=== PATIENT | female | born 2005 | race African-American/Black ===

== ENCOUNTER 2023-02-12 14:15 | Outpatient (CLI) | payer OTHER, SELFPAY ==
[2023-02-12 15:37] LABS: SARS-CoV-2 RNA PCR Negative (Negative)
== END 2023-02-12 14:16 | disposition home or self-care (01) ==
PROVIDERS: PCP Family Medicine; Visit Provider Family Medicine
DX: Z20.822 Contact with and (suspected) exposure to COVID-19 (principal)
CPT/HCPCS: 87635

== ENCOUNTER 2023-05-21 15:49 | Emergency (ER) | payer OTHER, SELFPAY ==
--- NOTE | 2023-05-21 16:38 | ED.URI ---
HPI - URI/Sore Throat General Chief Complaint: Upper Respiratory Infection Stated Complaint: covid exposure Time Seen by Provider: 05/21/23 16:38 Source: patient Mode of arrival: ambulatory Limitations: no limitations History of Present Illness HPI Narrative: 17-year-old female here for COVID testing. Had exposure from her father. Patient has no symptoms. All systems reviewed and negative except as noted above. Related Data Allergies Allergy/AdvReac Type Severity Reaction Status Date / Time No Known Allergies Allergy Verified 05/21/23 16:52 Review of Systems Review of Systems: CONSTITUTIONAL: Denies fever, chills, or sweats. EYES: Denies visual changes, redness, or discharge. ENT: Denies rhinorrhea, congestion, sore throat, or otalgia. CARDIOVASCULAR: Denies chest pain, palpitations, or edema. RESPIRATORY: Denies cough or dyspnea. GASTROINTESTINAL: Denies abdominal pain, nausea, vomiting, or diarrhea. GENITOURINARY: Denies dysuria or hematuria. SKIN: Denies rash or itching. MUSCULOSKELETAL: Denies back pain, joint pain, or myalgia. NEUROLOGIC: Denies headache, numbness, or weakness. PSYCHIATRIC: Denies anxiety or depression. All other systems reviewed are negative, except as documented in HPI. [facility] Past Medical History Medical History (Updated 05/21/23 @ 17:27 by Casandra Sahu NP) ADHD Surgical History Surgical History (Updated 03/22/23 @ 13:50 by Carleen Barlow PA-C) H/O foot surgery (~2021) Hx of tonsillectomy (~2009) Family History Family History (Updated 03/22/23 @ 13:39 by Therese Jacome MA) Father Asthma Heart disease Cerebrovascular accident Mother Asthma Diabetes mellitus Depression Sibling Asthma Grandparent Asthma Cancer of unknown origin Alcoholism Social History Social History (Updated 03/22/23 @ 13:51 by Carleen Barlow PA-C) Social History: She is living at home with parents, and 3 siblings. 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 Smoking status: Never smoker Alcohol intake: never Substance use: never Comments At time of signature, agree with nursing past medical, surgical, social and family history. There is no relevant family history pertinent to the presenting complaint. Exam Narrative: GENERAL: This is a well-nourished, well-developed patient, in no apparent distress. HEAD: normocephalic, atraumatic. EYES: PERRL. Sclera clear/white. Vision is grossly intact. EARS: External ears normal NOSE: External nose normal NECK: Neck supple, non-tender without lymphadenopathy, masses or thyromegaly. CARDIOVASCULAR: Regular rate and rhythm without murmurs, gallops, or rubs. RESPIRATORY: Clear to auscultation. Breath sounds equal bilaterally. No wheezes, rales, or rhonchi. SKIN: warm, Dry, intact with no suspicious lesions or rash, good texture and turgor. NEURO: awake, alert, and oriented to person, place and time. There were no obvious focal neurologic abnormalities. EXTREMITIES: No joint tenderness, effusion, or edema noted. Course Course Level of Care: Express Care Visit Vital Signs Vital signs: Vital Signs Temperature 36.3 C L 05/21/23 16:45 Pulse Rate 97 05/21/23 16:45 Respiratory Rate 18 05/21/23 16:45 Blood Pressure 126/84 05/21/23 16:45 Pulse Oximetry 98 05/21/23 16:45 Oxygen Delivery Room Air 05/21/23 16:45 Temperature 36.3 C L 05/21/23 16:45 Pulse Rate 97 05/21/23 16:45 Respiratory Rate 18 05/21/23 16:45 Blood Pressure 126/84 05/21/23 16:45 Pulse Oximetry 98 05/21/23 16:45 Oxygen Delivery Room Air 05/21/23 16:45 Reviewed MDM - URI/Sore Throat MDM Narrative Medical decision making narrative: Patient is aware of diagnosis, understands and agrees to treatment plan. Anticipatory guidance given. Patient agrees to follow-up as directed and is aware of reasons to seek care at the emergency department. Portions of this record may have been created with voice recognition
[2023-05-21 16:45] VITALS: BP 126/84; PULSE 97; RESP 18; TEMP 36.3; O2SAT 98
== END 2023-05-21 17:35 | disposition home or self-care (01) ==
PROVIDERS: Emergency Provider Nurse Practitioner Family; PCP Physician Assistant
DX: Z20.822 Contact with and (suspected) exposure to COVID-19 (principal); F90.9 Attention-deficit hyperactivity disorder, unspecified type
CPT/HCPCS: 87426; 99213; C9803; G0463

== ENCOUNTER 2024-02-01 08:20 | Emergency (ER) | payer SELFPAY ==
[2024-02-01 08:49] VITALS: BP 116/64; PULSE 98; RESP 20; TEMP 36.7; O2SAT 99
--- NOTE | 2024-02-01 09:02 | ED.URI ---
HPI - URI/Sore Throat General Chief Complaint: Upper Respiratory Infection Stated Complaint: covid symptoms and strep Time Seen by Provider: 02/01/24 09:03 Source: patient, RN notes reviewed and old records reviewed Mode of arrival: ambulatory Limitations: no limitations History of Present Illness HPI Narrative: 18-year-old female presents to the [facility] with complaints of sore throat, runny nose and a cough that started 2 days ago. Had taken a dose of cough and cold medicine that did not help much. Denies any other symptoms. Denies fevers, chest pain, abdominal pain, nausea, vomiting Onset (ago): day(s) (2) Treatments prior to arrival: cold medicine Related Data Allergies Allergy/AdvReac Type Severity Reaction Status Date / Time No Known Allergies Allergy Verified 02/01/24 08:43 Review of Systems Review of Systems: All systems reviewed & are unremarkable except as noted in HPI and below Constitutional: Constitutional: Reports no additional constitutional complaints Eyes: Eyes: Reports no additional eye complaints ENT: Reports as per HPI, Reports nasal congestion, Reports nasal discharge and Reports sore throat Cardiovascular: Cardiovascular: Reports no additional cardiovascular complaints, Denies chest pain and Denies dyspnea Respiratory: Respiratory: Reports as per HPI, Denies chest congestion, Reports cough and Denies dyspnea Gastrointestinal: Gastrointestinal: Reports no additional gastrointestinal complaints, Denies abdominal pain, Denies nausea and Denies vomiting Musculoskeletal: Musculoskeletal: Reports no additional musculoskeletal complaints Integumentary/Breasts: Skin/Breast: Reports system reviewed and no additional complaints, except as docu Neurologic: Reports system reviewed and no additional complaints, except as documented Psychiatric: Psychiatric: Reports no additional psychiatric complaints Allergic/Immunologic: Allergic/Immunologic: Reports no additional allergic/immunologic complaints [facility] Past Medical History Medical History ADHD Surgical History Surgical History H/O foot surgery (~2021) Hx of tonsillectomy (~2009) Family History Family History Father Asthma Heart disease Cerebrovascular accident Mother Asthma Diabetes mellitus Depression Sibling Asthma Grandparent Asthma Cancer of unknown origin Alcoholism Social History Social History (Reviewed 02/01/24 @ 09:09 by DIA Wilkinson Social History: She is living at home with parents, and 3 siblings. 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 Smoking status: Never smoker Alcohol intake: never Substance use: never Comments At the time of my signature, I reviewed and agree with the nursing past medical, surgical, social, and family history. There is no relevant family history pertinent to the patient complaint. Exam Const: General: cooperative, healthy appearing, comfortable, no acute distress, well developed, alert and well nourished Nutritional Appearance: well nourished and obese morbidly obese Orientation/consciousness: patient oriented x3 Limitations: no limitations HENMT: Head: normal to inspection Ears: hearing grossly normal bilaterally and external ears normal Face/Nose/Sinus: Normal external nose present, Normal nares present, Normal nasal mucous membranes and turbinates present, normal facial exam and face symmetric Face and sinus: normal facial exam and face symmetric Mouth: Yes Normal oral and palatal mucosa present, Yes lip normal and Yes tongue normal Throat: uvula midline, postnasal drainage, tonsils absent and no uvular edema Eyes: General: appearance normal, both eyes and all related structures Alignment and Position: alignment normal Periorbital: periorbital findings normal Pupils: Equal, round and reactive pupils present E
[2024-02-01 09:23] LABS: EDINFLUASCREEN Negative; EDINFLUBSCREEN Negative; EDSTREPNEGPOS1 Negative
== END 2024-02-01 09:16 | disposition home or self-care (01) ==
PROVIDERS: Emergency Provider Nurse Practitioner; PCP Family Medicine
DX: J06.9 Acute upper respiratory infection, unspecified (principal); R09.82 Postnasal drip; Z20.822 Contact with and (suspected) exposure to COVID-19
CPT/HCPCS: 87081; 87426; 87804; 87880; 99213; G0463

== ENCOUNTER 2024-05-08 10:49 | Emergency (ER) | payer OTHER, SELFPAY ==
--- NOTE | 2024-05-08 11:11 | ED.URI ---
HPI - URI/Sore Throat General Chief Complaint: Upper Respiratory Infection Stated Complaint: sob and cold symptoms Time Seen by Provider: 05/08/24 11:10 Source: patient Mode of arrival: ambulatory Limitations: no limitations History of Present Illness HPI Narrative: Patient is a 18-year-old female who presents with shortness of breath on exertion and cough since yesterday. Patient has been taking Zyrtec. Denies personal asthma history but has family history of asthma. Denies any fever, chills, nausea, vomiting, diarrhea, sore throat. Related Data Allergies Allergy/AdvReac Type Severity Reaction Status Date / Time No Known Allergies Allergy Verified 05/08/24 11:48 Review of Systems Review of Systems: All systems reviewed & are unremarkable except as noted in HPI and below Constitutional: Constitutional: Denies body ache(s), Denies chills, Denies fatigue, Denies fever(s), Denies headache(s), Denies malaise and Denies weakness Eyes: Eyes: Denies blurry vision, Denies itchy eyes and Denies loss of vision ENT: Denies otalgia, Denies headache(s), Reports nasal congestion, Denies sinus pain and Denies sore throat Cardiovascular: Cardiovascular: Denies chest pain, Denies irregular heart rhythm and Denies dyspnea Respiratory: Respiratory: Reports cough, Denies dyspnea and Reports dyspnea on exertion Gastrointestinal: Gastrointestinal: Denies abdominal pain, Denies diarrhea, Denies nausea and Denies vomiting Musculoskeletal: Musculoskeletal: Denies back pain, Denies myalgias and Denies arthralgias Integumentary/Breasts: Skin/Breast: Denies pruritus and Denies rash Neurologic: Denies headache(s), Denies loss of vision and Denies weakness Psychiatric: Psychiatric: Reports no additional psychiatric complaints Endocrine: Endocrine: Denies fatigue Allergic/Immunologic: Allergic/Immunologic: Denies itchy eyes PMFSH Past Medical History Medical History ADHD Surgical History Surgical History H/O foot surgery (~2021) Hx of tonsillectomy (~2009) Family History Family History Father Asthma Heart disease Cerebrovascular accident Mother Asthma Diabetes mellitus Depression Sibling Asthma Grandparent Asthma Cancer of unknown origin Alcoholism Social History Social History Social History: She is living at home with parents, and 3 siblings. 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 Smoking status: Never smoker Alcohol intake: never Substance use: never Comments At time of signature, agree with nursing past medical, surgical, social and family history. There is no relevant family history pertinent to the presenting complaint. Exam Const: General: cooperative, healthy appearing, comfortable, no acute distress and well nourished Nutritional Appearance: well nourished Orientation/consciousness: patient oriented x3 Limitations: no limitations HENMT: Head: normal to inspection, normocephalic and atraumatic Ears: hearing grossly normal bilaterally, external ears normal, TM's normal bilaterally, EAC's normal and no periauricular adenopathy Face/Nose/Sinus: Normal external nose present, Abnormal mucous membranes and turbinates present erythematous bilateral and diffuse, normal facial exam, sinuses nontender and face symmetric Face and sinus: normal facial exam, sinuses nontender and face symmetric Mouth: Yes Normal oral and palatal mucosa present, Yes lip normal, Yes tongue normal, Yes Normal salivary glands and ducts present, Yes oropharynx normal and Yes moist mucous membranes Teeth and gingiva: dentition normal Throat: posterior oropharynx normal, tonsils normal and uvula midline Eyes: General: appearance normal, both eyes and all related structures Alignment and Position: alignment normal and position normal Periorbital: periorbital findings normal Eyelids: eyelids normal Pupils: Equal, round and reactive pupils present Neck: Neck: normal visual inspection, full ROM, no lymphadenopathy and supple Chest: Chest palpation & inspection: normal inspection of the chest and normal palpation of entire chest wall Resp: Effort & Inspection: normal respiratory effort and able to speak in complete sentences Auscultation: no crackles, no rales, no rhonchi and wheezes expiratory wheezes and throughout Cardio: Rate: regular rate Rhythm: regular rhythm Heart sounds: S1 normal heart sound present and S2 normal heart sound present GI: Inspection: normal to inspection Skin: General skin exam: normal color and no rashes or lesions noted Neuro: General: patient oriented x3 and moves all extremities Cranial nerves: Yes Equal, round and reactive pupils present Speech: normal speech Gait exam (Neuro): Normal gait present Extrem: General: normal to inspection, full ROM and no edema Psych: Appearance: grossly normal and well kempt Mental Status: mental status grossly normal Speech and movement: Normal speech and movement present Affect: normal affect Attitude: cooperative Thought process: Normal thought process present Course Course Emergency Course: Patient is aware of diagnosis, understands and agrees to treatment plan. Anticipatory guidance given. Patient agrees to follow-up as directed and is aware of reasons to seek care at the emergency department. Portions of this record may have been created with voice recognition software Level of Care: Express Care Visit Vital Signs Vital signs: Vital Signs Temperature 37.2 C 05/08/24 11:27 Pulse Rate 113 H 05/08/24 11:27 Respiratory Rate 18 05/08/24 11:27 Blood Pressure 122/71 05/08/24 11:27 Pulse Oximetry 97 05/08/24 11:27 Oxygen Delivery Room Air 05/08/24 11:27 Temperature 37.2 C 05/08/24 11:27 Pulse Rate 113 H 05/08/24 11:27 Respiratory Rate 18 05/08/24 11:27 Blood Pressure 122/71 05/08/24 11:27 Pulse Oximetry 97 05/08/24 11:27 Oxygen Delivery Room Air 05/08/24 11:27 Reviewed MDM - URI/Sore Throat MDM Narrative Medical decision making narrative: Discharge instructions reviewed with patient, as well as provided in writing per nursing staff. The instructions also include specific and strict return/GO TO THE ER as well as f/u information. All questions have been answered, and the patient deny any further questions with discharge and discharge plan. Differential diagnosis considered: Sharp virus, strep pharyngitis, allergic rhinitis, upper respiratory tract infection, sinusitis, rhinosinusitis, nasopharyngitis. viral pharyngitis, otitis media, otitis externa, otitis effusion, foreign body, cerumen impaction, viral syndrome, and influenza.? Exam findings show no acute concerns or changes; patient is non-toxic appearing and is in no distress.? Patient is appropriate for outpatient treatment and follow-up.? Medical Records Attestation: I reviewed the patient's medical records. Lab Data Attestation: I reviewed the patient's lab results. Labs: Lab Results 05/08/24 Range/Units 12:20 POC Influenza A Ag Negative (Negative) POC Influenza B Ag Negative (Negative) POC SARS CoV-2 Ag Negative (Negative) Discharge Plan Discharge Clinical Impression: Upper respiratory infection Qualifiers: URI type: unspecified viral URI Qualified Code(s): J06.9 - Acute upper respiratory infection, unspecified Patient Disposition: Home, Self-Care Condition: Stable Instructions: Upper Respiratory Infection (ED) Additional Instructions: Use inhaler as needed. Use Tessalon Perles for cough. Your Covid and flu are both negative Your symptoms are likely due to a viral illness, which is not treated with antibiotics. Viral symptoms can be present for up to a few weeks. -Alternate Tylenol and Motrin per package directions for fever or pain. -Antihistamine medication such as Benadryl/Zyrtec at night and Claritin/Sadaf during the day can help improve symptoms. -Use Flonase twice a day for 5 days then daily to help reduce the inflammation and dry up your sinuses. -You can also use Sudafed behind the pharmacy counter(12 or 24 hour). Be sure to drink plenty of water with these medications at least 8 ounces with every dose and it is important to drink 8 to 10 glasses of water per day. Water is a natural decongestant -Eat and drink things that are easy to swallow, like tea or soup, or popsicles. -Oral rinses such as: Salt water gargles and/or may use topical anesthetic (eg. Chloraseptic spray) or lozenges to relieve dryness or throat pain). -Frequent hand washing or hand network management specialist is one of the best ways to prevent spread of infection. -Using a vaporizer or humidifier at night will also help thin secretions and help with coughing up phlegm. -Follow up with primary care provider in 3-5 days if condition is not improving - For new or worsening symptoms go directly to the nearest ER Prescriptions: New cetirizine 10 mg tablet 10 mg PO DAILY Qty: 30 0RF benzonatate 100 mg capsule 100 mg PO BID PRN (Reason: cough) Qty: 14 0RF albuterol sulfate 90 mcg/actuation HFA aerosol inhaler 2 puff inhalation QID PRN (Reason: shortness of breath or wheezing) Qty: 6.7 0RF fluticasone propionate [Flonase Allergy Relief] 50 mcg/actuation spray,suspension 1 spray intranasal DAILY Qty: 16 0RF Rx Instructions: administer into each nostril (DME) Aerochamber MV Spacer See Rx Instructions .Route Qty: 1 0RF Rx Instructions: As directed No Action dextroamphetamine-amphetamine [Adderall XR] 25 mg capsule,extended release 24hr 25 mg PO QAM Qty: 30 0RF Follow-up/Referrals: Cathy Moser MD [Primary Care Provider] - Stand Alone Forms: Work/School Release IP Time of Disposition: 12:15
[2024-05-08 11:27] VITALS: BP 122/71; PULSE 113; RESP 18; TEMP 37.2; O2SAT 97
[2024-05-08 17:03] LABS: EDCOVIDSCREEN Negative (Negative); EDINFLUASCREEN Negative (Negative); EDINFLUBSCREEN Negative (Negative)
== END 2024-05-08 12:22 | disposition home or self-care (01) ==
PROVIDERS: Emergency Provider Nurse Practitioner Family; PCP Family Medicine
DX: J06.9 Acute upper respiratory infection, unspecified (principal); Z20.822 Contact with and (suspected) exposure to COVID-19; F90.9 Attention-deficit hyperactivity disorder, unspecified type
CPT/HCPCS: 87426; 87804; 99213; G0463

== ENCOUNTER 2024-05-26 09:50 | Emergency (ER) | payer OTHER, SELFPAY ==
[2024-05-26 10:15] VITALS: BP 112/88; PULSE 119; RESP 20; TEMP 36.9; O2SAT 98
--- NOTE | 2024-05-26 10:57 | ED.URI ---
HPI - URI/Sore Throat General Chief Complaint: Upper Respiratory Infection Stated Complaint: sore throat Time Seen by Provider: 05/26/24 11:15 Source: patient, RN notes reviewed and old records reviewed Mode of arrival: ambulatory Limitations: no limitations History of Present Illness HPI Narrative: patient presents with less than 24 hours of fever, cough, runny nose, sore throat. She reports that she has been taking Tylenol for her symptoms. She states this is not very hopeful. She is able to swallow, but states this hurts more. She denies any shortness of breath. She is in no distress. She voices no other concerns or complaints at this Related Data Allergies Allergy/AdvReac Type Severity Reaction Status Date / Time No Known Allergies Allergy Verified 05/26/24 10:31 Review of Systems Review of Systems: All systems reviewed & are unremarkable except as noted in HPI and below Constitutional: Constitutional: Reports as per HPI, Reports no additional constitutional complaints, Reports fever(s), Reports headache(s) and Reports lethargy ENT: Reports system reviewed and no additional complaints, except as documented, Reports nasal congestion, Reports nasal discharge and Reports sore throat Cardiovascular: Cardiovascular: Reports no additional cardiovascular complaints Respiratory: Respiratory: Reports no additional respiratory complaints and Reports cough Gastrointestinal: Gastrointestinal: Reports no additional gastrointestinal complaints PMFSH Past Medical History Medical History ADHD Surgical History Surgical History Hx of tonsillectomy (~2009) H/O foot surgery (~2021) Family History Family History Father Asthma Heart disease Cerebrovascular accident Mother Asthma Diabetes mellitus Depression Sibling Asthma Grandparent Asthma Cancer of unknown origin Alcoholism Social History Social History Social History: She is living at home with parents, and 3 siblings. 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 Smoking status: Never smoker Alcohol intake: never Substance use: never Comments At the time of my signature, I reviewed and agree with the nursing past medical, surgical, social, and family history. There is no relevant family history pertinent to the patient complaint. Exam Const: General: cooperative, no acute distress, alert and awake Orientation/consciousness: oriented to person, oriented to place and oriented to time HENMT: Head: normal to inspection Ears: TM's normal bilaterally Mouth: Yes moist mucous membranes Throat: posterior oropharynx abnormal erythema and postnasal drainage Resp: Effort & Inspection: normal respiratory effort and able to speak in complete sentences Auscultation: clear to auscultation bilaterally, no crackles, no rales, no rhonchi and no wheezes Cardio: Palpation: normal PMI Rate: regular rate Rhythm: regular rhythm Heart sounds: S1 normal heart sound present and S2 normal heart sound present Neuro: General: oriented to person, oriented to place and oriented to time Cranial nerves: Yes CN's II-XII intact bilaterally Psych: Appearance: grossly normal Thought process: Normal thought process present Insight: Good insight present (Psych) Judgement: Good judgement present (Psych) Course Course Level of Care: Express Care Visit Vital Signs Vital signs: Vital Signs Temperature 98.4 F 05/26/24 10:15 Pulse Rate 119 H 05/26/24 10:15 Respiratory Rate 20 05/26/24 10:15 Blood Pressure 112/88 05/26/24 10:15 Pulse Oximetry 98 05/26/24 10:15 Temperature 98.4 F 05/26/24 10:15 Pulse Rate 119 H 05/26/24 10:15 Respiratory Rate 20 05/26/24 10:15 Blood Pressure 112/88 05/26/24 10:15 Pulse Oximetry 98 05/26/24 10:15 Reviewed MDM - URI/Sore Throat MDM Narrative Medical decision making narrative: negative flu, negative COVID, negative strep. Culture pending. Symptomatic treatment discussed with patient. Symptoms likely viral in origin. Patient nontoxic appearing, stable for discharge home. Discharge instructions reviewed with patient, as well as provided in writing per nursing staff. The instructions also include specific and strict return/GO TO THE ER as well as f/u information. All questions have been answered, and the patient deny any further questions with discharge and discharge plan. Some parts of this dictation were generated by voice recognition software and may contain typographical and/or grammatical inaccuracies. Differential Diagnosis Differential diagnosis: Likely upper respiratory infection, otitis media, sinusitis, viral infection, bronchitis and pharyngitis Medical Records Attestation: I reviewed the patient's medical records. Lab Data Attestation: I reviewed the patient's lab results. Discharge Plan Discharge Clinical Impression: Viral infection Patient Disposition: Home, Self-Care Condition: Stable Instructions: Antibiotic Form, Cold Symptoms (ED) Additional Instructions: Take [id number] medications to treat her symptoms. Follow package instructions. Follow with primary care provider. Emergency department for new or worse symptoms Patient Language: Greenlandic Prescriptions: No Action cetirizine 10 mg tablet 10 mg PO DAILY Qty: 30 0RF (DME) Aerochamber MV Spacer See Rx Instructions .Route Qty: 1 0RF Rx Instructions: As directed dextroamphetamine-amphetamine [Adderall XR] 25 mg capsule,extended release 24hr 25 mg PO QAM Qty: 30 0RF Follow-up/Referrals: Cathy Moser MD [Primary Care Provider] - 2 Weeks Time of Disposition: 11:23
[2024-05-26 11:12] LABS: EDINFLUASCREEN Negative (Negative); EDINFLUBSCREEN Negative (Negative); EDSTREPNEGPOS1 Negative (Negative)
[2024-05-26 11:12] LABS: EDCOVIDSCREEN Negative (Negative)
== END 2024-05-26 11:28 | disposition home or self-care (01) ==
PROVIDERS: Emergency Provider Nurse Practitioner Family; PCP Family Medicine
DX: B34.9 Viral infection, unspecified (principal); Z20.822 Contact with and (suspected) exposure to COVID-19
CPT/HCPCS: 87081; 87426; 87804; 87880; 99213; G0463

== ENCOUNTER 2024-07-17 11:54 | Emergency (ER) | payer OTHER, SELFPAY ==
[2024-07-17 12:14] VITALS: BP 100/77; PULSE 98; RESP 18; TEMP 36.9; O2SAT 100
--- OUTSIDE RECORDS SUMMARY | 2024-07-17 12:26 | XMS_ITS | Continuity of Care Document ---
Author Organization [facility], TD Address [address] [place] [phone] Phone Care Team Providers Care Wireless Engineer Name Role Phone Obholden OD, Lyubov Unavailable Unavailabl e Allergies, Adverse Reactions, Alerts Substance Reaction Status Criticality No Known Allergies Active No Inform ation Procedures Procedure Date REFRACTION EYE EXAM, NEW PATIENT Advance Directives Directive Yes / No Effective Date File Name No Information Encounters Encounter Description Practice Location Reason(s) For Visit Diagnoses Date Provider Providers Copied on Encounter [facility], [facility], [address] [place] [address], [id number], [place] tel:[phone] [facility] blurry DVA OU sc (chief complaint) Hypermetrop ia, bilateral Patricia Mcarthur. [address], [place], [place], [id number], [place]. tel:[phone] Referring Provider: Lyubov Solorzano, [address], [place], [address]. tel:[phone] Family History Family Member Type Diagnosis Age At Onset No Information Payers Payer name Insurance type Covered green party ID Authoriza tigolden(s) [employer] CI 000 Social History Type Description Quantity Date Captured Comments Alcohol Use Details Unknown Caffeine Use Details Unknown Tobacco Use Status Current non-smoker Smoking Status Never smoker Non-Smoking Tobacco Use Details : No Details Available : No Details Available Sex Female Chief Complaint And Reason For Visit From encounter dated 04/24/2022 13:00'. blurry DVA OU sc (chief complaint). Description: The 16 year 5 month old patient presents for evaluation of blurry DVA OU sc. PT reports NVA OU sc is good. It started a little while ago. PT denies pain or discomfort and use of eye meds or AT OU. Reason For Referral Reason For Referral No Information History Of Present Illness Encounter Date Complaint History Of Prese nt Illness blurry DVA OU sc The 16 year 5 m onth old patient presents for evaluation of blurry DVA OU sc. PT reports NVA OU sc is good. It started a little while ago. PT denies pain or discomfort and use of eye meds or AT OU. Functional Status Date Functional Assessmen t No Information Instructions Date Instruction Additional Infor devon Impression/Plan Assessments Type Assessment Date assessment Hypermetropia, bilateral 2021 Patient Care Teams Name Effective Dates (start - stop) Status Members No Information
--- OUTSIDE RECORDS SUMMARY | 2024-07-17 12:26 | XMS_ITS | Clinical Summary ---
Author Organization [facility] Address [address] [place] [address] Care Team Providers Care Desktop Operator Name Role Phone No, Physician Primary Care Provider [phone] Allergies No known active allergies Medications albuterol HFA (PROVENTIL HFA,VENTOLIN HFA,PROAIR HFA) 90 mcg/actuation inhaler Inhale 2 puffs every 4 (four) hours as needed for wheezing or shortness of breath 1 each 4 02/08/20 25 Active Additional Information Patient not taking.Reported on 06/04/2024 benzonatate (TESSALON) 100 mg capsuleIndicati ons:Cough Take 1 capsule (100 mg total) by mouth every 8 (eight) hours 21 capsule 4 Active Additional Information Patient not taking.Reported on 06/04/2024 albuterol 5 mg/mL nebulizer solution Take 0.5 mL (2.5 mg total) by nebulization every 6 (six) hours as needed for wheezing 20 mL 4 06/04/20 25 Active albuterol HFA (PROVENTIL HFA,VENTOLIN HFA,PROAIR HFA) 90 mcg/actuation inhaler Inhale 2 puffs every 4 (four) hours as needed for wheezing 1 each 4 06/04/20 25 Active guaiFENesin-dex tromethorphan ER (MUCINEX DM) 600-30 mg tablet extended release 12 hr Take 1 tablet by mouth every 12 (twelve) hours as needed (Take 1 every 12 hours as needed for congestion/cough ) 28 tablet 4 Active Active Problems No known active problems Encounters Date Type Department Care Team Description 06/04/2024 6:27 PM SENIOR NET PROGRAMMER - 06/04/2024 11:59 PM SENIOR NET PROGRAMMER Hospital Encounter [address] [address] Shortness of breath Discharge Disposition: Discharge to home or self care 06/04/2024 1:55 PM SENIOR NET PROGRAMMER - 06/04/2024 4:47 PM SENIOR NET PROGRAMMER Emergency [facility] Emergency Department [address] [place] [address] Shortness of breath (Primary Dx) Discharge Disposition: Discharge to home or self care 06/04/2024 12:00 PM SENIOR NET PROGRAMMER Office Visit [facility] at [address] [address] Blank Khalil PA Shortness of breath (Primary Dx); Lower respiratory infection from Last 3 Months Social History Tobacco Use Types Packs/Day Years Used Date Smoking Tobacco: Never Smokeless Tobacco: Never Tobacco Cessation:Counseling Given: Not Answered Alcohol Use Standard Drinks/Week Comments Never 0 (1 standard drink = 0.6 oz pur e alcohol) Personal Safety Answer Date Recorded Have you ever been in or are you currently in a harmful physical or emotional relationship or is someone making you feel afraid or unsafe? Denies 06/04/2024 Comments No Sex and Gender Information Value Date Recorded Sex Assigned at Not on file Legal Sex Female 1:12 AM SENIOR NET PROGRAMMER Gender Identity Not on file Sexual Orientation Not on file Obstetrics History Last Filed Vital Signs Vital Sign Reading Time Taken Comments Blood Pressure 153/92 06/04/2024 12:46 PM SENIOR NET PROGRAMMER Pulse 102 06/04/2024 2:15 PM SENIOR NET PROGRAMMER Temperature 36.6 C (97.9 F) 06/04/2024 12:46 PM SENIOR NET PROGRAMMER Respiratory Rate 20 06/04/2024 12:4 6 PM SENIOR NET PROGRAMMER Oxygen Saturation 97% 06/04/2024 2:15 PM SENIOR NET PROGRAMMER Inhaled Oxygen Concentration - - Weight 147.4 kg (324 lb 15.3 oz) 2023 12:46 PM SENIOR NET PROGRAMMER Height 157.5 cm (5' 2 ) 06/04/2024 12:4 6 PM SENIOR NET PROGRAMMER Body Mass Index 59.44 06/04/2024 12:46 PM SENIOR NET PROGRAMMER Plan of Treatment Health Maintenance Due Date Last Done Comments Depression Screening 2003 Hepatitis C Screening 2003 Varicella Vaccines (1 of 2 - 13+ 2-dose series) 11/05/2016 Regular Well Visit/Exam 18-64 11/05/2021 Meningococcal B Vaccine (2 o f 2 - Risk Bexsero 2-dose series) 02/06/2022 01/09/2022 Influenza Vaccine (#1) 2024 06/08/2013, 2011 DTaP/Tdap/Td Vaccine (7 - Td or Tdap) 01/16/2025 01/16/2015, 06/15/2008, 03/09/2005, Additional history exists Pneumococcal vaccine <65 Completed 005, 05/26/2004, 03/11/2004, Additional history exists HPV Vaccines Completed 05/21/2017, 01/16/2015 Meningococcal Vaccine Completed 01/09/2022, 015 Procedures Procedure Name Priority Date/Time Associated Diagnosis Comments EGFR STAT 06/04/2024 3:00 PM SENIOR NET PROGRAMMER DIFFERENTIAL AUTO STAT 06/04/2024 3:0 0 PM SENIOR NET PROGRAMMER CBC WITH AUTO DIFFERENTIAL STAT 06/04/2024 3:00 PM SENIOR NET PROGRAMMER COMPREHENSIVE METABOLIC PANEL STAT 06/04/2024 3:00 PM SENIOR NET PROGRAMMER XR CHEST PA LATERAL 2 VIEWS ED 06/04/2024 1:07 PM SENIOR NET PROGRAMMER POCT RAPID STREP Routine 06/04/2024 11:3 8 AM SENIOR NET PROGRAMMER Shortness of breath POC INFLUENZA A/B, COVID-19 ANTIGEN Routine 06/04/2024 11:36 AM SENIOR NET PROGRAMMER Shortness of breath THROAT CULTURE Routine 06/04/2024 8:00 AM SENIOR NET PROGRAMMER Shortness of breath from Last 3 Months Results * eGFR (06/04/2024 3:00 PM SENIOR NET PROGRAMMER) eGFR >90 >=60 mL/min/1. 73 m2 Comment: Interpretive Data Reference Interval Normal >/= 90 mL/min/1.73m2 Mildly decreased* 60 - 89 mL/min/1.73m2 Mildly to moderately decreased 45 - 59 mL/min/1.73m2 Moderately to severely decreased 30 - 44 mL/min/1.73m2 Severely decreased 15 - 29 mL/min/1.73m2 Kidney Failure < 15 mL/min/1.73m2 *Relative to young adult level Estimated glomerular filtration rate is determined by the 2020 CKD-EPI equation recommended by the National Kidney Foundation (A Unifying Approach to GFR Estimation: Recommendations of the NKF-ASK Task Force on Reassessing the Inclusion of Race in Diagnosing Kidney Disease, JASN 2020). The CKD-EPI equation should not be used for patients with unstable renal function and has not been validated in children and those over 70. Current interpretive data was last reviewed 2021. Testing performed by: [address] [address] Blood 06/04/2024 3:00 PM SENIOR NET PROGRAMMER 06/04/2024 3:05 PM SENIOR NET PROGRAMMER us Heydi HURTADO LAB BLOOD ORDERABL ES Final Result RITU [address] [facility] [place] [address] * Differential, auto (06/04/2024 3:00 PM SENIOR NET PROGRAMMER) Neutrophil abs 5.9 1.5 - 6.5 K/cumm Comment:Testing performed by : [address] [address] Imm gran abs 0.0 0.0 - 0.1 K/cumm RITU Comment:Testing performed by : [address] [address] Lymphocyte abs 2.3 0.8 - 3.3 K/cumm RITU Comment:Testing performed by : [address] [address] Monocyte abs 0.4 0.2 - 0.8 K/cumm RITU Comment:Testing performed by : [address] [address] Eosinophil abs 0.3 0.0 - 0.5 K/cumm RITU Comment:Testing performed by : [address] [address] Basophil abs 0.0 0.0 - 0.1 K/cumm RITU Comment:Testing performed by : [address] [address] Neutrophil pct 66.0 % [facility] [place] Comment: Interpretive Data Percent cell count reference ranges are not reported, since discordance with absolute values may lead to misinterpretation of CBC data. Current Interpretive Data was last revised on 2017. Testing performed by: [address] [address] Imm gran pct 0.3 % [facility] Comment: Interpretive Data Percent cell count reference ranges are not reported, since discordance with absolute values may lead to misinterpretation of CBC data. Current Interpretive Data was last revised on 2017. Testing performed by: [address] [address] Lymphocyte pct 26.1 % [facility] Comment: Interpretive Data Percent cell count reference ranges are not reported, since discordance with absolute values may lead to misinterpretation of CBC data. Current Interpretive Data was last revised on 2017. Testing performed by: [address] [address] Monocyte pct 4.4 % [facility] Comment: Interpretive Data Percent cell count reference ranges are not reported, since discordance with absolute values may lead to misinterpretation of CBC data. Current Interpretive Data was last revised on 2017. Testing performed by: [address] [address] Eosinophil pct 2.9 % [facility] Comment: Interpretive Data Percent cell count reference ranges are not reported, since discordance with absolute values may lead to misinterpretation of CBC data. Current Interpretive Data was last revised on 2017. Testing performed by: [address] [address] Basophil pct 0.3 % [facility] [place] Comment: Interpretive Data Percent cell count reference ranges are not reported, since discordance with absolute values may lead to misinterpretation of CBC data. Current Interpretive Data was last revised on 2017. Testing performed by: [address] [address] Blood 06/04/2024 3:00 PM SENIOR NET PROGRAMMER 06/04/2024 3:05 PM SENIOR NET PROGRAMMER Heydi HURTADO LAB BLOOD ORDERABL ES Final Result RITU [address] [facility] Department [place] [address] * (ABNORMAL) CBC with auto differential (06/04/2024 3:00 PM SENIOR NET PROGRAMMER) WBC 9.0 3.8 - 9.9 K/cumm Comment:Testing performed by : [address] [address] Hgb 10.6(L) 11.9 - 15.5 g/dL RITU Comment:Testing performed by : [address] [address] Hct 34.7(L) 35.6 - 45.5 % R[facility]U Comment:Testing performed by : [address] [address] Plt 390 150 - 400 K/cumm RITU Comment:Testing performed by : [address] [address] MPV 9.0(L) 9.1 - 12.3 fL RITU Comment:Testing performed by : [address] [address] RBC 4.26 3.90 - 5.20 M/cumm RITU Comment:Testing performed by : [address] [address] MCV 81.5 81.3 - 96.4 fL RITU Comment:Testing performed by : [address] [address] MCH 24.9(L) 27.1 - 33.3 pg RITU CH Comment:Testing performed by : [address] [address] MCHC 30.5(L) 32.3 - 35.7 g/dL RITU CH Comment:Testing performed by : [address] [address] RDW CV 15.5(H) 11.1 - 14.9 % R[facility]U CH Comment:Testing performed by : [address] [address] RDW SD 46.0 35.7 - 48.1 fL RITU CH Comment:Testing performed by : [address] [address] NRBC abs 0.00 0.00 - 0.01 K/cumm RITU CH Comment:Testing performed by : [address] [address] Blood 06/04/2024 3:00 PM SENIOR NET PROGRAMMER 06/04/2024 3:05 PM SENIOR NET PROGRAMMER us Heydi HURTADO LAB BLOOD ORDERABL ES Final Result R[facility]U CH [facility]3 [facility] Department [place] [address] * Comprehensive metabolic panel (06/04/2024 3:00 PM SENIOR NET PROGRAMMER) Sodium 140 135 - 145 mmol/L Comment:Testing performed by : [address] [address] Potassium, pl 3.6 3.3 - 4.9 mmol/L RITU CH Comment:Testing performed by : [address] [address] Chloride 105 97 - 110 mmol/L RITU CH Comment:Testing performed by : [address] [address] CO2 24 22 - 32 mmol/L RITU CH Comment:Testing performed by : [address] [address] Anion gap 11 2 - 15 mmol/L RITU CH Comment:Testing performed by : [address] [address] BUN 12 6 - 25 mg/dL RITU Comment:Testing performed by : [address] [address] Creatinine 0.80 0.60 - 1.10 mg/dL RITU Comment:Testing performed by : [address] [address] Glucose 90 70 - 199 mg/dL RITU Comment: Interpretive Data Fasting glucose >/= 126 mg/dl is diagnostic for diabetes. Fasting is defined as no caloric intake for at least 8 hours. Fasting glucose between 100 mg/dl to 125 mg/dl is diagnostic of prediabetes. In a patient with classic symptoms of hyperglycemia or hyperglycemic crisis, a random glucose >/= 200 mg/dl is diagnostic for diabetes. In the absence of unequivocal hyperglycemia, results should be confirmed by repeat testing. The classification and Diagnosis of Diabetes Diabetes Care 2021; 46: S19-S40. Current interpretive data was last revised 2022. Testing performed by: [address] [address] Calcium 9.4 8.5 - 10.3 mg/dL RITU Comment:Testing performed by : [address] [address] Bilirubin, total 0.4 0.1 - 1.2 mg/dL RITU Comment:Testing performed by : [address] [address] Protein, pl 8.1 6.5 - 8.5 g/dL RITU Comment:Testing performed by : [address] [address] Albumin 3.9 3.5 - 5.0 g/dL RITU Comment:Testing performed by : [address] [address] Alk phos 82 40 - 130 Units/L RITU Comment:Testing performed by : [address] [address] ALT 20 7 - 45 Units/L RITU Comment:Testing performed by : [address] [address] AST 22 10 - 45 Units/L R[facility]U CH Comment:Testing performed by : [facility], [address], [place]., [address] Blood 06/04/2024 3:00 PM SENIOR NET PROGRAMMER 06/04/2024 3:05 PM SENIOR NET PROGRAMMER us Adebowale Tolulade Adesida PA LAB BLOOD ORDERABL ES Final Result RITU DIMA [address] [facility] Department [place] [address] * XR Chest PA Lateral 2 Views (06/04/2024 1:07 PM SENIOR NET PROGRAMMER) Anatomical Region Laterality Modality Body, Chest N/A Computed Radiogr aphy 06/04/2024 1:50 PM SENIOR NET PROGRAMMER Narrative 06/04/2024 1:50 PM SENIOR NET PROGRAMMER EXAM DESCRIPTION: XR CHEST PA LATERAL 2 VIEWS REASON FOR STUDY: Shortness of breath Came to ED for c/o cough, SOB, and wheezing for last week. Reports sent to ED from [facility] for reports of O2 sats of 90% per pt. Reports tested negative for Covid, Flu, and RSV TECHNIQUE: There are 2 radiographic view(s) of the chest. COMPARISON: Prior exam 02/07/2024 FINDINGS: LUNGS: Pulmonary vasculature is normal. No infiltrate or effusion. Costophrenic angles are sharp. HEART/MEDIASTINUM: Cardiac silhouette normal in size. Mediastinal and hilar contours appear normal. LINES/TUBES: None. BONES: No acute osseous abnormality. IMPRESSION: No acute cardiopulmonary abnormality. THIS IS AN ELECTRONICALLY VERIFIED FINAL REPORT 06/04/2024 1:50 PM - Electronically signed by Michael Hinds M.D. MJ: ANNMARIE Report ID: [id number] Reading Location: [place] [address] Procedure Note Michael Hinds MD - 06/04/2024 EXAM DESCRIPTION: XR CHEST PA LATERAL 2 VIEWS REASON FOR STUDY: Shortness of breath Came to ED for c/o cough, SOB, and wheezing for last week. Reports sent toED from [facility] for reports of O2 sats of 90% per pt. Reports tested negative for Covid, Flu, and RSV TECHNIQUE: There are 2 radiographic view(s) of the chest. COMPARISON: Prior exam 02/07/2024 FINDINGS: LUNGS: Pulmonary vasculature is normal. No infiltrate oreffusion. Costophrenic angles are sharp. HEART/MEDIASTINUM: Cardiac silhouette normal in size. Mediastinal andhilar contours appear normal. LINES/TUBES: None. BONES: No acute osseous abnormality. IMPRESSION: No acute cardiopulmonary abnormality. THIS IS AN ELECTRONICALLY VERIFIED FINAL REPORT 06/04/2024 1:50 PM - Electronically signed by Michael Hinds M.D. MJ: ANNMARIE Report ID: [id number] Reading Location: [place] [address] Caro Stokes MD IMG XR PROCEDURES Final R esult * POCT rapid strep A (06/04/2024 11:38 AM SENIOR NET PROGRAMMER) Rapid Strep A, POC Negative Negative Swab 06/04/2024 11:3 8 AM SENIOR NET PROGRAMMER Blank HURTADO POINT OF CARE TEST ORDER TERESA Final Result * POC Influenza A/B, COVID-19 antigen (06/04/2024 11:36 AM SENIOR NET PROGRAMMER) Influenza A Ag, POC Negative Negative [facility] Influenza B Ag, POC Negative Negative [facility] COVID-19 Ag POC Presumptive Negative Presumptive Negative, Invalid [facility] Nasal 06/04/2024 11:3 6 AM SENIOR NET PROGRAMMER Blank HURTADO POINT OF CARE TEST ORDER TERESA Final Result [facility] [address] * Throat culture Throat (06/04/2024 8:00 AM SENIOR NET PROGRAMMER) Report Final Report: No growth of pathogens. Comment:Testing performed by : [facility], [address] [facility], [place]., [address] Throat 06/04/2024 8:00 AM SENIOR NET PROGRAMMER 06/04/2024 9:49 PM SENIOR NET PROGRAMMER Narrative RITU ESTRADA - 06/05/2024 10:44 PM SENIOR NET PROGRAMMER Testing performed by [facility] ([phone]). us Blank HURTADO LAB MICROBIOLOGY - GENER AL ORDERABLES Final Result RITU ESTRADA [address] [address] [place] [address] from Last 3 Months Insurance Care Teams Desktop Operator Relationship Specialty Start Date End Date No, Physician PCP - General 02/07/24
--- OUTSIDE RECORDS SUMMARY | 2024-07-17 12:26 | XMS_ITS | Continuity of Care Document ---
Author Organization [facility], TD Address [address] [place] [phone] Phone Care Team Providers Care Ticket Collector Or Usher Name Role Phone Obholden OD, Lyubov Unavailable Unavailabl e Allergies, Adverse Reactions, Alerts Substance Reaction Status Criticality No Known Allergies Active No Inform ation Procedures Procedure Date REFRACTION EYE EXAM, NEW PATIENT Advance Directives Directive Yes / No Effective Date File Name No Information Encounters Encounter Description Practice Location Reason(s) For Visit Diagnoses Date Provider Providers Copied on Encounter [facility], [facility], [address] [place] [address], [id number], [place] tel:[phone] [facility] blurry DVA OU sc (chief complaint) Hypermetrop ia, bilateral Patricia Mcarthur. [address], [place], [place], [id number], [place]. tel:[phone] Referring Provider: Lyubov Solorzano, [address], [place], [address]. tel:[phone] Family History Family Member Type Diagnosis Age [...]
--- OUTSIDE RECORDS SUMMARY | 2024-07-17 12:26 | XMS_ITS | Referral Summary ---
Author Organization [facility] Address [address] [place] [address] Care Team Providers Care Pile Driver Operator Name Role Phone No, Physician Primary Care Provider [phone] Encounters Date Type Department Care Team Description 06/04/2024 6:27 PM SOLID DIE CUTTER - 06/04/2024 11:59 PM SOLID DIE CUTTER Hospital Encounter [address] [address] Shortness of breath Discharge Disposition: Discharge to home or self care 06/04/2024 1:55 PM SOLID DIE CUTTER - 06/04/2024 4:47 PM SOLID DIE CUTTER Emergency [facility] Emergency Department [address] [place] [id number] Shortness of breath (Primary Dx) Discharge Disposition: Discharge to home or self care 06/04/2024 12:00 PM SOLID DIE CUTTER Office Visit [facility] Care at [address] [phone] Blank Khalil PA Shortness of breath (Primary Dx); Lower respiratory infection from Last 3 Months Allergies No known active allergies Medications albuterol [...] as needed for congestion/cough ) 28 tablet Active Active Problems No known active problems Social History Tobacco Use Types Packs/Day Years [...] on file Legal Sex Female 1:12 AM SOLID DIE CUTTER Gender Identity Not on file Sexual Orientation Not on file Last Filed Vital Signs Vital Sign Reading Time Taken Comments Blood Pressure 153/92 06/04/2024 12:46 PM SOLID DIE CUTTER Pulse 102 06/04/2024 2:15 PM SOLID DIE CUTTER Temperature 36.6 C (97.9 F) 06/04/2024 12:46 PM SOLID DIE CUTTER Respiratory Rate 20 06/04/2024 12:4 6 PM SOLID DIE CUTTER Oxygen Saturation 97% 06/04/2024 2:15 PM SOLID DIE CUTTER Inhaled Oxygen Concentration - - Weight 147.4 kg (324 lb 15.3 oz) 2023 12:46 PM SOLID DIE CUTTER Height 157.5 cm (5' 2 ) 06/04/2024 12:4 6 PM SOLID DIE CUTTER Body Mass Index 59.44 06/04/2024 12:46 PM SOLID DIE CUTTER Plan of Treatment Not on file Procedures Procedure Name Priority Date/Time Associated Diagnosis Comments EGFR STAT 06/04/2024 3:00 PM SOLID DIE CUTTER DIFFERENTIAL AUTO STAT 06/04/2024 3:0 0 PM SOLID DIE CUTTER CBC WITH AUTO DIFFERENTIAL STAT 06/04/2024 3:00 PM SOLID DIE CUTTER COMPREHENSIVE METABOLIC PANEL STAT 06/04/2024 3:00 PM SOLID DIE CUTTER XR CHEST PA LATERAL 2 VIEWS ED 06/04/2024 1:07 PM SOLID DIE CUTTER POCT RAPID STREP Routine 06/04/2024 11:3 8 AM SOLID DIE CUTTER Shortness of breath POC INFLUENZA A/B, COVID-19 ANTIGEN Routine 06/04/2024 11:36 AM SOLID DIE CUTTER Shortness of breath THROAT CULTURE Routine 06/04/2024 8:00 AM SOLID DIE CUTTER Shortness of breath from Last 3 Months Results * eGFR (06/04/2024 3:00 PM SOLID DIE CUTTER) eGFR >90 >=60 mL/min/1. 73 m2 Comment: [...] of Race in Diagnosing Kidney Disease, JASN 202). The CKD-EPI equation should not be used for patients with unstable renal function and has not been validated in children and those over 70. Current interpretive data was last reviewed 2021. Testing performed by: [facility], [address] [place] [address], [place]., [address] Blood 06/04/2024 3:00 PM SOLID DIE CUTTER 06/04/2024 3:05 PM SOLID DIE CUTTER Heydi HURTADO LAB BLOOD ORDERABL ES Final Result [facility] [address] [facility] Department [place] [address] * Differential, auto (06/04/2024 3:00 PM SOLID DIE CUTTER) Neutrophil abs 5.9 1.5 - 6.5 K/cumm Comment:Testing performed by : [address] [address] Imm gran abs 0.0 0.0 - 0.1 K/cumm [facility] Comment:Testing performed by : [address] [address] Lymphocyte abs 2.3 0.8 - 3.3 K/cumm R[facility]U Comment:Testing performed by : [address] [address] Monocyte abs 0.4 0.2 - 0.8 K/cumm R[facility]U Comment:Testing performed by : [address] [address] Eosinophil abs 0.3 0.0 - 0.5 K/cumm R[facility]U Comment:Testing performed by : [address] [address] Basophil abs 0.0 0.0 - 0.1 K/cumm [facility]U Comment:Testing performed by : [address] [address] Neutrophil pct 66.0 % [facility] Comment: Interpretive Data Percent cell count reference ranges are not reported, since discordance with absolute values may lead to misinterpretation of CBC data. Current Interpretive Data was last revised on 2017. Testing performed by: [address] [address] Imm gran pct 0.3 % [facility] Comment: Interpretive Data Percent cell count reference ranges are not reported, since discordance with absolute values may lead to misinterpretation of CBC data. Current Interpretive Data was last revised on 2017. Testing performed by: [address] [address] Lymphocyte pct 26.1 % [facility] Comment: Interpretive Data Percent cell count reference ranges are not reported, since discordance with absolute values may lead to misinterpretation of CBC data. Current Interpretive Data was last revised on 2017. Testing performed by: [address] [address] Monocyte pct 4.4 % [facility] Comment: Interpretive Data Percent cell count reference ranges are not reported, since discordance with absolute values may lead to misinterpretation of CBC data. Current Interpretive Data was last revised on 2017. Testing performed by: [address] [address] Eosinophil pct 2.9 % [facility] Comment: Interpretive Data Percent cell count reference ranges are not reported, since discordance with absolute values may lead to misinterpretation of CBC data. Current Interpretive Data was last revised on 2017. Testing performed by: [address] [address] Basophil pct 0.3 % [facility] Comment: Interpretive Data Percent cell count reference ranges are not reported, since discordance with absolute values may lead to misinterpretation of CBC data. Current Interpretive Data was last revised on 2017. Testing performed by: [address] [address] Blood 06/04/2024 3:00 PM SOLID DIE CUTTER 06/04/2024 3:05 PM SOLID DIE CUTTER us Heydi HURTADO LAB BLOOD ORDERABL ES Final Result [facility] [address] [facility] Department [place] [address] * (ABNORMAL) CBC with auto differential (06/04/2024 3:00 PM SOLID DIE CUTTER) WBC 9.0 3.8 - 9.9 K/cumm Comment:Testing performed by : [address], [address] Hgb 10.6(L) 11.9 - 15.5 g/dL [facility] Comment:Testing performed by : [address] [address] Hct 34.7(L) 35.6 - 45.5 % [facility] Comment:Testing performed by : [address] [address] Plt 390 150 - 400 K/cumm [facility] Comment:Testing performed by : [address], [address] MPV 9.0(L) 9.1 - 12.3 fL [facility] Comment:Testing performed by : [address], [address] RBC 4.26 3.90 - 5.20 M/cumm [facility] Comment:Testing performed by : [address], [address] MCV 81.5 81.3 - 96.4 fL [facility] Comment:Testing performed by : [address], [address] MCH 24.9(L) 27.1 - 33.3 pg [facility] Comment:Testing performed by : [address], [address] MCHC 30.5(L) 32.3 - 35.7 g/dL [facility] Comment:Testing performed by : [address], [address] RDW CV 15.5(H) 11.1 - 14.9 % [facility] Comment:Testing performed by : [address], [address] RDW SD 46.0 35.7 - 48.1 fL [facility] Comment:Testing performed by : [address], [address] NRBC abs 0.00 0.00 - 0.01 K/cumm [facility] Comment:Testing performed by : [address], [address] Blood 06/04/2024 3:00 PM SOLID DIE CUTTER 06/04/2024 3:05 PM SOLID DIE CUTTER Heydi HURTADO LAB BLOOD ORDERABL ES Final Result [facility] [address] [facility] Department [place] [address] * Comprehensive metabolic panel (06/04/2024 3:00 PM SOLID DIE CUTTER) Sodium 140 135 - 145 mmol/L Comment:Testing performed by : [address] [address] Potassium, pl 3.6 3.3 - 4.9 mmol/L [facility] Comment:Testing performed by : [address] [address] Chloride 105 97 - 110 mmol/L [facility] Comment:Testing performed by : [address] [address] CO2 24 22 - 32 mmol/L [facility] Comment:Testing performed by : [address] [address] Anion gap 11 2 - 15 mmol/L [facility] Comment:Testing performed by : [address] [address] BUN 12 6 - 25 mg/dL [facility] Comment:Testing performed by : [address] [address] Creatinine 0.80 0.60 - 1.10 mg/dL [facility] Comment:Testing performed by : [address] [address] Glucose 90 70 - 199 mg/dL [facility] [...] classification and Diagnosis of Diabetes Diabetes Care 202; 46: S19-S40. Current interpretive data was last revised 2022. Testing performed by: [address] [address] Calcium 9.4 8.5 - 10.3 mg/dL [facility] Comment:Testing performed by : [address] [address] Bilirubin, total 0.4 0.1 - 1.2 mg/dL [facility] Comment:Testing performed by : [address] [address] Protein, pl 8.1 6.5 - 8.5 g/dL [facility] Comment:Testing performed by : [address] [address] Albumin 3.9 3.5 - 5.0 g/dL [facility] Comment:Testing performed by : [address] [address] Alk phos 82 40 - 130 Units/L [facility] Comment:Testing performed by : [address] [address] ALT 20 7 - 45 Units/L [facility] Comment:Testing performed by : [address] [address] AST 22 10 - 45 Units/L [facility] Comment:Testing performed by : [address] [address] Blood 06/04/2024 3:00 PM SOLID DIE CUTTER 06/04/2024 3:05 PM SOLID DIE CUTTER us Adebowanais Le Adesida PA LAB BLOOD ORDERABL ES Final Result [facility] [address] [facility] Department of Laboratories [place], [place] [id number] * XR Chest PA Lateral 2 Views (06/04/2024 1:07 PM SOLID DIE CUTTER) Anatomical Region Laterality Modality Body, Chest N/A Computed Radiogr aphy 06/04/2024 1:50 PM SOLID DIE CUTTER Narrative 06/04/2024 1:50 PM SOLID DIE CUTTER EXAM DESCRIPTION: XR CHEST PA LATERAL 2 VIEWS REASON FOR STUDY: Shortness of breath Came to ED for c/o cough, SOB, and wheezing for last week. [facility] for reports of O2 sats of 90% [...] 1:50 PM - Electronically signed by Michael ANGUIANO Report ID: [id number] Reading Location: [place] [address] Procedure Note Michael Hinds MD - 06/04/2024 EXAM DESCRIPTION: XR CHEST PA LATERAL 2 VIEWS REASON FOR STUDY: Shortness of breath Came to ED for c/o cough, SOB, and wheezing for last week. Reports sent to[facility] from [facility] for reports of O2 sats of 90% [...] 1:50 PM - Electronically signed by Michael ANGUIANO: ANNMARIE Report ID: [id number] Reading Location: [place] [address] Caro Stokes MD IMG XR PROCEDURES Final R esult * POCT rapid strep A (06/04/2024 11:38 AM SOLID DIE CUTTER) Rapid Strep A, POC Negative Negative Swab 06/04/2024 11:3 8 AM SOLID DIE CUTTER Blank HURTADO POINT OF CARE TEST ORDER TERESA Final Result * POC Influenza A/B, COVID-19 antigen (06/04/2024 11:36 AM SOLID DIE CUTTER) Influenza A Ag, POC Negative Negative [facility] Influenza B Ag, POC Negative Negative [facility] COVID-19 Ag POC Presumptive Negative Presumptive Negative, Invalid [facility] Nasal 06/04/2024 11:3 6 AM SOLID DIE CUTTER Blank HURTADO POINT OF CARE TEST ORDER TERESA Final Result [facility] [address] [place] [address] * Throat culture Throat (06/04/2024 8:00 AM SOLID DIE CUTTER) Report Final Report: No growth of pathogens. Comment:Testing performed by : [facility], [address] [facility] [place]., [address] Throat 06/04/2024 8:00 AM SOLID DIE CUTTER 06/04/2024 9:49 PM SOLID DIE CUTTER Narrative [facility] ESTRADA - 06/05/2024 10:44 PM SOLID DIE CUTTER Testing performed by [facility] ([phone]). Blank HURTADO LAB MICROBIOLOGY - GENER AL ORDERABLES Final Result [facility] [address] [address] Department [place] [address] from Last 3 Months Insurance [facility] [id number] Care Teams Pile Driver Operator Relationship Specialty Start Date End Date No, Physician PCP - General 02/07/24
--- NOTE | 2024-07-17 12:46 | ED_ITS ---
HPI - URI/Sore Throat General Chief Complaint: Upper Respiratory Infection Stated Complaint: cold symptoms and flu Time Seen by Provider: 07/17/24 12:46 Source: patient Mode of arrival: ambulatory Limitations: no limitations History of Present Illness HPI Narrative: 18-year-old female presents with complaint of cough, nasal congestion, runny nose, nausea, fatigue and fever starting yesterday. Patient vomited x1. Patient reports influenza exposure last week. No chest pain shortness of breath. Patient taking [id number] Tylenol cold fluid to treat symptoms. All systems reviewed and negative except as noted above. Related Data Allergies Allergy/AdvReac Type Severity Reaction Status Date / Time No Known Allergies Allergy Verified 07/17/24 12:34 Review of Systems Review of Systems: CONSTITUTIONAL: reports fever, chills, or sweats. EYES: Denies visual changes, redness, or discharge. ENT: Reports rhinorrhea, congestion. Denies sore throat, or otalgia. CARDIOVASCULAR: Denies chest pain, palpitations, or edema. RESPIRATORY: reports cough. Denies dyspnea. GASTROINTESTINAL: Denies abdominal pain, nausea, vomiting, or diarrhea. GENITOURINARY: Denies dysuria or hematuria. SKIN: Denies rash or itching. MUSCULOSKELETAL: Denies back pain, joint pain, or myalgia. NEUROLOGIC: Denies headache, numbness, or weakness. PSYCHIATRIC: Denies anxiety or depression. All other systems reviewed are negative, except as documented in HPI. [facility] Past Medical History Medical History ADHD Surgical History Surgical History Hx of tonsillectomy (~2009) H/O foot surgery (~2021) Family History Family History Father Asthma Heart disease Cerebrovascular accident Mother Asthma Diabetes mellitus Depression Sibling Asthma Grandparent Asthma Cancer of unknown origin Alcoholism Social History Social History Social History: She is living at home with parents, and 3 siblings. 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 Smoking status: Never smoker Alcohol intake: never Substance use: never Comments At time of signature, agree with nursing past medical, surgical, social and family history. There is no relevant family history pertinent to the presenting complaint. Exam Narrative: GENERAL: This is a well-nourished, well-developed patient, patient ill-appearing but no acute distress HEAD: normocephalic, atraumatic. EYES: PERRL. Sclera clear/white. Vision is grossly intact. EARS: External ears normal, auditory canals clear and without drainage, TMs normal without perforation. Hearing grossly intact. NOSE: External nose normal with clear nasal drainage THROAT: Mucous membranes moist, posterior pharynx clear. NECK: Neck supple, non-tender without lymphadenopathy, masses or thyromegaly. CARDIOVASCULAR: Regular rate and rhythm without murmurs, gallops, or rubs. RESPIRATORY: Clear to auscultation. Breath sounds equal bilaterally. No wheezes, rales, or rhonchi. SKIN: warm, Dry, intact with no suspicious lesions or rash, good texture and turgor. NEURO: awake, alert, and oriented to person, place and time. There were no obvious focal neurologic abnormalities. EXTREMITIES: No joint tenderness, effusion, or edema noted. Course Course Level of Care: Express Care Visit Vital Signs Vital signs: Vital Signs Temperature 36.9 C 07/17/24 12:14 Pulse Rate 98 07/17/24 12:14 Respiratory Rate 18 07/17/24 12:14 Blood Pressure 100/77 07/17/24 12:14 Pulse Oximetry 100 07/17/24 12:14 Oxygen Delivery Room Air 07/17/24 12:14 Temperature 36.9 C 07/17/24 12:14 Pulse Rate 98 07/17/24 12:14 Respiratory Rate 18 07/17/24 12:14 Blood Pressure 100/77 07/17/24 12:14 Pulse Oximetry 100 07/17/24 12:14 Oxygen Delivery Room Air 07/17/24 12:14 reviewed MDM - URI/Sore Throat MDM Narrative Medical decision making narrative: negative COVID and influenza. Patient is well-appearing, nontoxic. Lungs clear to auscultation. Hemodynamically stable. Recommend she continue amfn-gtt-zeulbry medications to treat viral symptoms. Please be advised this is a medical document. It is intended for iszq-rp-bils communication. It is written in medical language and may contain unfamiliar abbreviations or verbiage. Medical documents are intended to carry relevant information, facts as evident, and the clinical opinion of the practitioner at the time of the encounter. This report may have been done utilizing a voice recognition system. Attempts have been made to correct errors. However, there may be uncorrected grammatical, spelling, and recognition errors present. The file time of this note does not necessarily represent the time of service. Differential Diagnosis Differential diagnosis: Likely upper respiratory infection, sinusitis, viral infection and influenza Lab Data Labs: Lab Results 07/17/24 Range/Units 12:58 POC Influenza A Ag Negative (Negative) POC Influenza B Ag Negative (Negative) POC SARS CoV-2 Ag Negative (Negative) Discharge Plan Discharge Clinical Impression: Viral upper respiratory tract infection with cough Patient Disposition: Home, Self-Care Condition: Stable Instructions: Upper Respiratory Infection (ED) Additional Instructions: your COVID and influenza test was negative today. Your symptoms are viral and may last 10-14 days. Continue taking Tylenol cold and flu medication to treat her symptoms. Take as directed on packaging. Take ibuprofen every 6-8 hours as needed for pain and fever. Drink at least 64 oz of water a day. Follow-up your primary care physician if symptoms are not improving. Patient Language: Romansh Prescriptions: No Action dextroamphetamine-amphetamine [Adderall XR] 25 mg capsule,extended release 24hr 25 mg PO QAM Qty: 30 0RF Follow-up/Referrals: UNKNOWN,DOCTOR [Primary Care Provider] - Time of Disposition: 13:04
[2024-07-17 13:00] LABS: EDCOVIDSCREEN Negative (Negative); EDINFLUASCREEN Negative (Negative); EDINFLUBSCREEN Negative (Negative)
== END 2024-07-17 13:17 | disposition home or self-care (01) ==
PROVIDERS: Emergency Provider Nurse Practitioner Family
DX: J06.9 Acute upper respiratory infection, unspecified (principal); R05.9 Cough, unspecified; Z20.822 Contact with and (suspected) exposure to COVID-19; F90.9 Attention-deficit hyperactivity disorder, unspecified type
CPT/HCPCS: 87426; 87804; 99212; G0463